=== PATIENT | female | born 1970 | race Caucasian/White ===

== ENCOUNTER 2020-03-19 14:57 | Emergency (ER) | payer OTHER, SELFPAY ==
[2020-03-19 15:06] VITALS: BP 137/100; PULSE 101; RESP 20; TEMP 37.4; O2SAT 100
--- NOTE | 2020-03-19 15:20 | ED.GENADULT ---
HPI - General Adult General Chief complaint: Urogenital-Female Stated complaint: burning with urination/sore throat Time Seen by Provider: 03/19/20 15:38 Source: patient Mode of arrival: ambulatory Limitations: no limitations History of Present Illness HPI narrative: 49-year-old female patient presents to the [facility] with complaints of urinary symptoms for the past week. Patient states she has had some burning with urination, some low back pain and some abdominal discomfort. Patient states she is also noticed some blood in her urine here and there. Patient states she has had blood in her urine before but forgot what the doctor had called it. Patient states she does not have any concerns for STDs at this time. Patient denies any fevers, nausea, vomiting or diarrhea. Patient also complaining of sore throat. Patient states her nose is also been a little bit stuffy. Denies any ear pain or sneezing. Denies any chest pain or shortness of breath. Patient states she has been taking Zyrtec and Flonase for her symptoms. Patient states she is concerned she might have strep throat. Related Data Home Medications Medication Instructions Recorded Confirmed Ranitidine 300 mg PO QPM 03/19/20 albuterol sulfate 1 inh INHALATION QID PRN 03/19/20 03/19/20 aspirin 81 mg PO DAILY 03/19/20 03/19/20 atorvastatin 40 mg PO DAILY 03/19/20 03/19/20 beclomethasone dipropionate [Qvar 2 inh INHALATION Q12H 03/19/20 03/19/20 RediHaler] bupropion HCl 300 mg PO QAM 03/19/20 03/19/20 cetirizine 10 mg PO DAILY 03/19/20 03/19/20 cholecalciferol (vitamin D3) 25 mcg PO BID 03/19/20 03/19/20 [Vitamin D3] dextroamphetamine-amphetamine 20 mg PO BID 03/19/20 03/19/20 [Adderall] fluticasone propionate 1 inh INHALATION BID 03/19/20 03/19/20 hydrocodone-acetaminophen 1 tablet PO Q6H PRN 03/19/20 03/19/20 ipratropium bromide 2.5 ml INHALATION Q6H PRN 03/19/20 03/19/20 lisinopril 20 mg PO DAILY 03/19/20 03/19/20 metoprolol succinate 100 mg PO DAILY 03/19/20 03/19/20 montelukast [Singulair] 10 mg PO HS 03/19/20 03/19/20 pantoprazole 40 mg PO BID 03/19/20 03/19/20 sucralfate 1 g PO QID PRN 03/19/20 03/19/20 topiramate 50 mg PO BID 03/19/20 03/19/20 Allergies Allergy/AdvReac Type Severity Reaction Status Date / Time No Known Allergies Allergy Verified 03/19/20 15:39 Review of Systems Review of Systems: Narrative: CONSTITUTIONAL: Denies fever, chills, or sweats. EYES: Denies visual changes, redness, or discharge. ENT: Denies rhinorrhea, congestion, positive sore throat, denies otalgia. CARDIOVASCULAR: Denies chest pain, palpitations, or edema. RESPIRATORY: Denies cough or dyspnea. GASTROINTESTINAL: Positive lower abdominal discomfort, denies nausea, vomiting, or diarrhea. GENITOURINARY: Denies dysuria, positive hematuria. Positive pain with urination SKIN: Denies rash or itching. MUSCULOSKELETAL: Positive low back pain, denies joint pain, or myalgia. NEUROLOGIC: Denies headache, numbness, or weakness. PSYCHIATRIC: Denies anxiety or depression. PMFSH Comments At the time of my signature I agree with nursing past medical history, surgical, social, and family history. There is no relevant family history pertinent to the presenting complaint. Exam Narrative: Exam Narrative: GENERAL: Well-appearing, well-nourished, and in no acute distress. HEAD: Normocephalic, atraumatic. EYES: PERRLA and EOMI. ENT: Nares clear, no rhinorrhea or epistaxis. Mucous membranes moist. Posterior pharynx with no erythema, tonsil enlargement, exudates or lesions present. Bilateral TMs are clear with no erythema or foreign bodies in the canal. NECK: Supple. No lymphadenopathy CHEST: Clear to auscultation. No respiratory distress. HEART: Regular rate and rhythm. No murmur heard. Normal peripheral pulses. ABDOMEN: Soft, flat, nondistended. No guarding, rebound tenderness, or rigid. No pulsatilla masses. Hyperactive bowel sounds present in all four quadrants. No organomegaly. Negativ
== END 2020-03-19 15:55 | disposition home or self-care (01) ==
PROVIDERS: Emergency Provider Nurse Practitioner Family
DX: R30.0 Dysuria (principal); I48.91 Unspecified atrial fibrillation; E78.00 Pure hypercholesterolemia, unspecified; I10 Essential (primary) hypertension; J45.909 Unspecified asthma, uncomplicated; K21.9 Gastro-esophageal reflux disease without esophagitis
CPT/HCPCS: 81003; 87081; 87086; 87088; 87880; 99203; G0463